=== PATIENT | female | born 2000 | race Caucasian/White ===

== ENCOUNTER 2020-02-02 03:11 | Emergency (ER) | payer BC ==
[2020-02-02 03:24] VITALS: BP 126/65; PULSE 73
--- NOTE | 2020-02-02 03:44 | EDM.PDOC ---
ED HPI GENERAL MEDICAL PROBLEM - General Chief Complaint: Abdominal Pain Stated Complaint: ABD PAIN Time Seen by Provider: 02/02/20 03:35 Source of Information: Reports: Patient History Limitations: Reports: No Limitations - History of Present Illness INITIAL COMMENTS - FREE TEXT/NARRATIVE: Patient states she had mild upper abdominal discomfort starting Sunday evening. She continued eating through the day on Sunday and Sunday evening the pain seemed to get worse. Approximately 1 hour prior to arrival here her pain was more severe and on the way to the hospital she vomited in the car. She had almost immediate relief of her pain. She denies any blood in her vomitus. Denies any fever. No diarrhea. No dysuria Duration: Day(s): (2), Improving, Resolved Prior to Arrival (Patient vomited on her way to the hospital and states she now feels much better) Upper Abdomen Pain Score (Numeric/FACES): 5 - Related Data Allergies Allergy/AdvReac Type Severity Reaction Status Date / Time No Known Allergies Allergy Verified 02/02/20 03:24 Home Meds: Home Meds norgestimate-ethinyl estradioL [Estarylla 0.25-0.035 mg Tablet] 1 tab PO DAILY 02/02/20 [History] Past Medical History - Past Health History Medical/Surgical History: Denies Medical/Surgical History [employer] History: Reports: None Other [employer]ATOR History: last menstrual cycle- 11/26/15- 2 weeks ago Musculoskeletal History: Reports: Fracture Other Musculoskeletal History: fx finger - Infectious Disease History Infectious Disease History: Reports: Chicken Pox - Past Surgical History GI Surgical History: Reports: Appendectomy Social & Family History - Family History GI: Reports: Other (See Below) Other GI Family History: cousin colitis Neurological: Reports: CVA - Tobacco Use Smoking Status *Q: Never Smoker Second Hand Smoke Exposure: No - Caffeine Use Caffeine Use: Reports: Coffee, Energy Drinks, Soda, Tea - Alcohol Use Days Per Week of Alcohol Use: 0 - Recreational Drug Use Recreational Drug Use: No ED ROS GENERAL - Review of Systems Review Of Systems: See Below Constitutional: Denies: Fever GI/Abdominal: Reports: Abdominal Pain, Vomiting ED EXAM, GI/ABD - Physical Exam Exam: See Below Exam Limited By: No Limitations General Appearance: Alert, No Apparent Distress Eyes: Bilateral: Normal Appearance Ears: Normal External Exam, Normal Canal Nose: Normal Inspection, Normal Mucosa Throat/Mouth: Normal Inspection, Normal Lips, Normal Gums Head: Atraumatic, Normocephalic Neck: Normal Inspection, Supple. No: Lymphadenopathy (R), Lymphadenopathy (L) Respiratory/Chest: No Respiratory Distress, Lungs Clear Cardiovascular: Normal Peripheral Pulses, Regular Rate, Rhythm, No Murmur GI/Abdominal Exam: Normal Bowel Sounds, Soft, No Organomegaly, No Mass, Other ( Well-healed laparotomy scars present from her appendectomy. She has very mild tenderness in her epigastric area with palpation. No positive Patel sign). No : Guarding, Rebound Back Exam: Normal Inspection, Full Range of Motion. No: CVA Tenderness (R), CVA Tenderness (L) Extremities: Normal Inspection, Normal Range of Motion Neurological: Alert, Oriented, Normal Cognition Psychiatric: Normal Affect, Normal Mood Skin Exam: Warm, Dry, No Rash Course - Vital Signs Text/Narrative:: On discussion with the patient, I did offer laboratory testing and possible gallbladder ultrasound. Since she is feeling better, she is amenable to no further evaluation at this time but returning if she were to develop worsening or new symptoms. Last Recorded V/S: Last Vital Signs Temp 36.4 C 02/02/20 03:23 Pulse 73 02/02/20 03:23 Resp 16 02/02/20 03:23 BP 126/65 02/02/20 03:23 Pulse Ox 99 02/02/20 03:23 Departure - Departure Time of Disposition: 03:56 Disposition: Home, Self-Care 01 Clinical Impression: Vomiting Qualifiers: Vomiting type: unspecified Vomiting Intractability: unspecified Nausea presence : with nausea Qualified Code(s): R11.2 - Nausea with vomiting, unspecified - Discharge Information Instructions: Viral Gastroenteritis, Adult, [id number], Nausea and Vomiting, Adult Referrals: PCP,None [Primary Care Provider] - Forms: ED Department Discharge Additional Instructions: Since your feeling much better, we have elected not to do any testing at this time. If your pain worsens, you develop fever, recurrent vomiting or bloody vomitus, definitely return to this emergency department for evaluation. Sepsis Event Note - Evaluation Sepsis Screening Result: No Definite Risk - Focused Exam Vital Signs: Vital Signs Temp Pulse Resp BP Pulse Ox 02/02/20 03:23 36.4 C 73 16 126/65 99 Date Exam was Performed: 02/02/20 Time Exam was Performed: 04:07
== END 2020-02-02 04:06 | disposition home or self-care (01) ==
LOC: JP.ED 03:11
DX: R11.2 Nausea with vomiting, unspecified (principal)
CPT/HCPCS: 99283